=== PATIENT | male | born 1950 | race Hispanic/Latino ===

== ENCOUNTER 2018-10-24 10:18 | Outpatient (CLI) | payer MEDICARE ==
--- NOTE | 2018-10-24 11:18 | RAD ---
CERVICAL SPINE 3 VIEWS: Date: 10/24/18 HISTORY: Injury from a fall. FINDINGS: Disc osteophytosis changes are noted of the cervical spine. No prevertebral soft tissue swelling. The odontoid and portions of C1 are obscured on the AP open-mouth view. Extensive uncovertebral and face t arthrosis changes are noted. IMPRESSION: Cervical spondylosis. No fracture or dislocation involving the visualized cervical spine. POS: [facility]
--- NOTE | 2018-10-24 11:21 | RAD ---
THORACIC SPINE 3 VIEWS: Date: 10/24/18 HISTORY: Injury from a fall. FINDINGS: Extensive multilevel disc osteophytosis, evidence for thoracic spondylosis. No evidence for acute fra cture or dislocation or significant malalignment. IMPRESSION: Thoracic spine spondylosis without evidence for acute fracture. Given history of injury from trauma, if the patient has significant or worsening pain in the cervical or thoracic spine level, considerati on for follow-up CT scan or MRI study might be of benefit. POS: [facility]
--- NOTE | 2018-10-24 11:23 | RAD ---
LUMBAR SPINE 2 VIEWS: HISTORY: Back pain following injury from a fall. FINDINGS: AP and lateral views of the lumbar spine are performed. There is some minimal less than 50% vertical height loss of the L1 vertebral body with some irregularity of the superior end plate raising concer n for the possibility of a compression fracture. There does not appear to be severe associated retro pulsion. Multilevel disk-osteophytosis and disk space narrowing. Mild scoliotic changes convex to t he left side at the level of the lower spine. IMPRESSION: Less than 50% vertical height loss compression fracture of L1. Severe spondylosis. Mild scoliosis. CODE T POS: [facility]
== END 2018-10-24 10:19 | disposition home or self-care (01) ==
LOC: BICRAD 10:18
PROVIDERS: ATTEND Physician Assistant
DX: M54.41 Lumbago with sciatica, right side (principal); W19.XXXA Unspecified fall, initial encounter; M47.816 Spondylosis without myelopathy or radiculopathy, lumbar region; M41.9 Scoliosis, unspecified; S32.019A Unspecified fracture of first lumbar vertebra, initial encounter for closed fracture; M47.814 Spondylosis without myelopathy or radiculopathy, thoracic region; M47.812 Spondylosis without myelopathy or radiculopathy, cervical region
CPT/HCPCS: 72040; 72072; 72100

== ENCOUNTER 2021-03-20 07:45 | Inpatient (IN) | payer MEDICARE ==
[2021-03-21 12:45] VITALS: BMI 29.8
[2021-03-23] MEDS ORDERED: ceFAZolin 2 GM/DEX 5% 100 ML BAG ONE (06:11)
[2021-03-23] MEDS ORDERED: Fentanyl 100 MCG/2 ML VIAL ONE ×2 (06:25→10:03)
[2021-03-23] MEDS ORDERED: Lidocaine 1% (PF) 30 ML VIAL ONE (06:30)
[2021-03-23] MEDS ORDERED: Bupivacaine 0.25% 10 ML VIAL ONE ×3 (06:30→06:52)
[2021-03-23] MEDS ORDERED: EPINEPHrine 1 MG/ML AMP ONE (06:30)
[2021-03-23] MEDS ORDERED: Lidocaine 0.5%/Epinephrine 1:200,000 50 ml Vial ONE (06:36)
[2021-03-23] MEDS ORDERED: Lidocaine 1% w/Epinephrine 1:100K 20 ML VIAL ONE (06:52)
[2021-03-23] MEDS ORDERED: Ondansetron PF 4 MG/2 ML Vial ONE (07:14)
[2021-03-23] MEDS ORDERED: Rocuronium Bromide 10 MG/ML (10ML VIAL) ONE (07:14)
[2021-03-23] MEDS ORDERED: Glycopyrrolate 0.2 MG/ML 5 ML SYRINGE ONE (07:14)
[2021-03-23] MEDS ORDERED: Lidocaine 1% PF 5 ML VIAL ONE (07:14)
[2021-03-23] MEDS ORDERED: Phenylephrine 10 MG/ML VIAL ONE (07:14)
[2021-03-23] MEDS ORDERED: PROPOFOL 200 MG/20 ML VIAL ONE (07:14)
[2021-03-23] MEDS ORDERED: Dexamethasone 20 MG/5 ML VIAL ONE (07:14)
[2021-03-23] MEDS ORDERED: Promethazine HCl 25 MG/ML VIAL IVPB PRN (07:44)
[2021-03-23] MEDS ORDERED: Promethazine HCl 25 MG/ML VIAL IM PRN (07:44)
[2021-03-23] MEDS ORDERED: Ondansetron HCl/PF 4 MG/2 ML Vial IVP PRN (07:44)
[2021-03-23] MEDS ORDERED: Acetaminophen 325 MG TAB PO PRN (08:59)
[2021-03-23] MEDS ORDERED: Cepastat Lozenges 1 LOZ PO PRN (08:59)
[2021-03-23] MEDS ORDERED: Docusate 100 MG CAP PO PRN (08:59)
[2021-03-23] MEDS ORDERED: hydrALAZINE 20 MG/ML VIAL SLOW IVP PRN (08:59)
[2021-03-23] MEDS ORDERED: Morphine 4 MG/ML VIAL SLOW IVP PRN (08:59)
[2021-03-23] MEDS ORDERED: HYDROcodone/Acetaminophen 7.5/325 mg Tablet PO PRN (08:59)
[2021-03-23] MEDS ORDERED: Promethazine HCl 12.5 MG in Sodium Chloride 0.9% 50 ML IVPB PRN (09:03)
[2021-03-23] MEDS ORDERED: Acetaminophen/Codeine 30-300mg Tablet PO PRN (09:04)
[2021-03-23] MEDS: Sodium Chloride 0.9% 1,000 ML IV SCH ×2 (13:21→23:36)
[2021-03-23] MEDS: ceFAZolin Sodium/D5W 2 GM in Premix Bag 1 BAG IVPB SCH ×2 (15:49→22:51)
[2021-03-23] MEDS: traMADol HCl 50 MG TAB PO PRN (16:11)
[2021-03-24] MEDS: ceFAZolin Sodium/D5W 2 GM in Premix Bag 1 BAG IVPB SCH (06:30)
[2021-03-24] MEDS: Losartan 25 MG TAB PO SCH ×2 (08:06→08:15)
[2021-03-24] MEDS: Amlodipine 10 MG TAB PO SCH ×2 (08:06→08:15)
[2021-03-24] MEDS: traMADol HCl 50 MG TAB PO PRN ×2 (08:06→18:34)
[2021-03-24] MEDS: Ondansetron PF 4 MG/2 ML Vial IVP PRN ×2 (08:06→18:34)
[2021-03-24] MEDS: Sodium Chloride 0.9% 1,000 ML IV SCH (09:43)
[2021-03-24 16:07] VITALS: BP 152/75; TEMP 98.3
== END 2021-03-24 20:10 | disposition home or self-care (01) | DRG 33 ==
LOC: SURG A 03-23 05:59 → EDSTATUS 03-23 07:45 → SURG A 03-23 12:38
PROVIDERS: ADMIT Surgery; ATTEND Surgery
PROC: 00163J6 Bypass Cerebral Ventricle to Peritoneal Cavity with Synthetic Substitute, Percutaneous Approach (ICD-10-PCS; principal; 2021-03-23)
PROC: 0WJG4ZZ Inspection of Peritoneal Cavity, Percutaneous Endoscopic Approach (ICD-10-PCS; 2021-03-23)
DX: G91.2 (Idiopathic) normal pressure hydrocephalus (principal); Z20.822 Contact with and (suspected) exposure to COVID-19; I10 Essential (primary) hypertension; Z79.899 Other long term (current) drug therapy; Z01.818 Encounter for other preprocedural examination
CPT/HCPCS: 70450; 80048; 85027; 85610; 85730; 93005; C1713; C1750; C1889; J0171; J1100; J2001; J2370; J2405; J2704; J3010; J3370; L8501; S0020; U0003; U0005

== ENCOUNTER 2021-03-20 08:09 | Outpatient (CLI) | payer MEDICARE ==
[2021-03-20 09:21] LABS: Hemoglobin 13.2 g/dL (13.5-17.5); Mean Corpuscular HGB CONC 32.8 g/dL (32.0-36.0); Mean Corpuscular Hemoglobin 27.5 pg (27.0-33.0); Mean Platelet Volume 11.2 fl (7.4-10.4); Platelet Count 278 10x3/uL (150-450); RBC Distribution Width 13.2 % (11.5-14.5); White Blood Cell (WBC) Count 6.1 10x3/uL (3.5-10.5)
[2021-03-20 09:35] LABS: Anion Gap 12 mmol/L (10-20); BUN (Urea Nitrogen) 21 mg/dL (8.4-25.7); Calc. Creatinine Clearance 0 mL/min (70-130); Calcium 9.3 mg/dL (7.8-10.44); Carbon Dioxide 27 mmol/L (23-31); Chloride 107 mmol/L (98-107); Glucose 100 mg/dL (83-110); Potassium 5.1 mmol/L (3.5-5.1); Sodium 141 mmol/L (136-145)
[2021-03-20 09:42] LABS: PTT 26.7 sec (22.0-33.0); Prothrombin Time 10.7 sec (9.5-12.1)
[2021-03-21 14:31] LABS: SARS-CoV-2 PCR by NAA Not Detected (NotDetected)
== END 2021-03-20 08:10 | disposition home or self-care (01) ==
LOC: LABBT 08:09
PROVIDERS: ATTEND Surgery
DX: Z01.818 Encounter for other preprocedural examination (principal); G91.9 Hydrocephalus, unspecified; Z20.822 Contact with and (suspected) exposure to COVID-19
CPT/HCPCS: 80048; 85027; 85610; 85730; 93005; U0003; U0005; 93010

== ENCOUNTER 2021-06-01 09:53 | Outpatient (CLI) | payer MEDICARE | END 2021-06-01 09:54 | disposition home or self-care (01) | LOC: BICCT 09:53 | PROVIDERS: ATTEND Surgery | DX: R51.9 Headache, unspecified (principal); I62.00 Nontraumatic subdural hemorrhage, unspecified; Z98.2 Presence of cerebrospinal fluid drainage device | CPT/HCPCS: 70450; 74018 ==

== ENCOUNTER 2021-06-01 13:30 | Inpatient (IN) | payer MEDICARE ==
[2021-06-02] MEDS ORDERED: Fentanyl 250 MCG/5 ML VIAL ONE (09:40)
[2021-06-02] MEDS ORDERED: Lidocaine 0.5%/Epinephrine 1:200,000 50 ml Vial ONE (09:46)
[2021-06-02] MEDS ORDERED: Thrombin 5000 UNITS/5 ML VIAL ONE (09:46)
[2021-06-02] MEDS ORDERED: SUGAMMADEX SODIUM 200 MG/2 ML VIAL ONE (09:52)
[2021-06-02] MEDS ORDERED: ceFAZolin 2 GM/DEX 5% 100 ML BAG ONE ×2 (09:58)
[2021-06-02] MEDS ORDERED: Ondansetron PF 4 MG/2 ML Vial IVP PRN (10:05)
[2021-06-02] MEDS ORDERED: Promethazine HCl 25 MG/ML VIAL IM PRN ×2 (10:05→10:47)
[2021-06-02] MEDS ORDERED: HYDROcodone/Acetaminophen 7.5/325 mg Tablet PO PRN (10:05)
[2021-06-02] MEDS ORDERED: PROPOFOL 200 MG/20 ML VIAL ONE (10:07)
[2021-06-02] MEDS ORDERED: Dexamethasone 20 MG/5 ML VIAL ONE (10:07)
[2021-06-02] MEDS ORDERED: Rocuronium Bromide 10 MG/ML (10ML VIAL) ONE (10:07)
[2021-06-02] MEDS ORDERED: Lidocaine 1% PF 5 ML VIAL ONE (10:07)
[2021-06-02] MEDS ORDERED: Ondansetron PF 4 MG/2 ML Vial ONE (10:07)
[2021-06-02] MEDS ORDERED: PHENYLEPHRINE-NS 100 MCG/ML 10 ML SYRINGE ONE (10:07)
[2021-06-02] MEDS ORDERED: ePHEDrine 50 MG/ML VIAL ONE (10:07)
[2021-06-02] MEDS ORDERED: Morphine 4 MG/ML VIAL SLOW IVP PRN (10:26)
[2021-06-02] MEDS ORDERED: Ondansetron HCl/PF 4 MG/2 ML Vial IVP PRN (10:47)
[2021-06-02] MEDS ORDERED: HYDROmorphone 2 MG/ML VIAL SLOW IVP PRN (10:47)
[2021-06-02] MEDS ORDERED: Promethazine HCl 25 MG/ML VIAL IVPB PRN (10:47)
[2021-06-02] MEDS: Sodium Chloride 0.9% 1,000 ML IV SCH (13:07)
[2021-06-02] MEDS ORDERED: FLU VACC QS2021-22(65YR UP)/PF 240 MCG/0.7 ML SYRINGE IM ONE (13:15)
[2021-06-02] MEDS: CEFAZOLIN 2 GM, Admixture Fee 1 EACH in Sodium Chloride 0.9% 100 ML IVPB SCH (17:42)
[2021-06-03] MEDS: Sodium Chloride 0.9% 1,000 ML IV SCH ×3 (01:43→18:24)
[2021-06-03] MEDS: CEFAZOLIN 2 GM, Admixture Fee 1 EACH in Sodium Chloride 0.9% 100 ML IVPB SCH ×3 (01:43→18:23)
[2021-06-03] MEDS: Amlodipine 10 MG TAB PO SCH (09:15)
[2021-06-03] MEDS: Losartan 25 MG TAB PO SCH (09:16)
[2021-06-04 00:30] LABS: #Basophils 0.1 thou/uL (0.0-0.2); #Eosinphils 0.2 thou/uL (0.0-0.7); #Lymphocytes 1.9 thou/uL (1.20-3.40); #Monocytes 0.8 thou/uL (0.11-0.59); #Neutrophils 5.7 thou/uL (1.40-6.50); %Basophils 0.7 % (0.0-1.0); %Eosinophils 2.4 % (0.0-10.0); %Lymphocytes 21.6 % (21.0-51.0); %Monocytes 8.7 % (0.0-10.0); %Neutrophils 66.6 % (42.0-75.0); Hemoglobin 14.5 g/dL (14.0-18.0); Mean Corpuscular HGB CONC 33.9 g/dL (32.0-36.0); Mean Corpuscular Hemoglobin 29.7 pg (27.0-31.0); Mean Corpuscular Volume 87.5 fL (78.0-98.0); Mean Platelet Volume 8.4 fL (7.4-10.4); Platelet Count 261 thou/uL (130-400); RBC Distribution Width 12.4 % (11.5-14.5); White Blood Cell (WBC) Count 8.6 thou/uL (4.8-10.8)
[2021-06-04 00:52] LABS: Anion Gap 9 mmol/L (10-20); BUN (Urea Nitrogen) 15 mg/dL (8.4-25.7); Calc. Creatinine Clearance 101 mL/min (70-130); Calcium 8.3 mg/dL (7.8-10.44); Carbon Dioxide 28 mmol/L (23-31); Chloride 105 mmol/L (98-107); Glucose 102 mg/dL (83-110); Potassium 3.8 mmol/L (3.5-5.1); Sodium 138 mmol/L (136-145)
[2021-06-04] MEDS: CEFAZOLIN 2 GM, Admixture Fee 1 EACH in Sodium Chloride 0.9% 100 ML IVPB SCH (02:36)
[2021-06-04 05:38] VITALS: BMI 29.5
[2021-06-04] MEDS ORDERED: Metoprolol Tartrate 5 MG/5 ML VIAL IVP SCH (08:30)
[2021-06-04] MEDS: Sodium Chloride 0.9% 1,000 ML IV SCH ×2 (10:10→16:44)
[2021-06-04] MEDS: Losartan 25 MG TAB PO SCH (10:11)
[2021-06-04] MEDS: Amlodipine 10 MG TAB PO SCH (10:12)
[2021-06-04] MEDS: Metoprolol Tartrate 25 MG TAB PO SCH (20:57)
[2021-06-04] MEDS: Amiodarone 200 MG TAB PO SCH (20:57)
[2021-06-05] MEDS: Metoprolol Tartrate 25 MG TAB PO SCH (08:47)
[2021-06-05] MEDS: Losartan 25 MG TAB PO SCH (08:47)
[2021-06-05] MEDS: Amlodipine 10 MG TAB PO SCH (08:47)
[2021-06-05] MEDS: Amiodarone 200 MG TAB PO SCH ×3 (08:50→21:11)
[2021-06-05] MEDS ORDERED: Potassium Chloride 20 MEQ TAB PO SCH (16:00)
[2021-06-06 08:13] VITALS: BP 145/70; TEMP 98.3
[2021-06-06] MEDS: Losartan 25 MG TAB PO SCH (08:37)
[2021-06-06] MEDS: Amlodipine 10 MG TAB PO SCH (08:38)
[2021-06-06] MEDS ORDERED: Amiodarone 200 MG TAB PO SCH (09:00)
== END 2021-06-06 10:55 | disposition home or self-care (01) | DRG 26 ==
LOC: SURG A 06-02 07:35 → CCU 06-02 12:40 → 2NO 06-04 11:09
PROVIDERS: ADMIT Surgery; ATTEND Surgery
PROC: 00C40ZZ Extirpation of Matter from Intracranial Subdural Space, Open Approach (ICD-10-PCS; principal; 2021-06-02)
DX: I62.02 Nontraumatic subacute subdural hemorrhage (principal); G91.2 (Idiopathic) normal pressure hydrocephalus; G96.08 Other cranial cerebrospinal fluid leak; I62.03 Nontraumatic chronic subdural hemorrhage; Z20.822 Contact with and (suspected) exposure to COVID-19; I10 Essential (primary) hypertension; R00.1 Bradycardia, unspecified; I48.0 Paroxysmal atrial fibrillation; Z28.21 Immunization not carried out because of patient refusal; Z98.2 Presence of cerebrospinal fluid drainage device
CPT/HCPCS: 36415; 70450; 74018; 80048; 83735; 83930; 84443; 85025; 85027; 85610; 85730; 93005; 93010; 93306; 93970; C1713; J0690; J1100; J2001; J2405; J2704; J3010; J3370; J3490; J7050; U0003; U0005

== ENCOUNTER 2021-06-01 13:56 | Outpatient (CLI) | payer MEDICARE ==
[2021-06-01 15:07] LABS: Mean Corpuscular HGB CONC 32.7 g/dL (32.0-36.0); Mean Corpuscular Hemoglobin 27.7 pg (27.0-33.0); Mean Corpuscular Volume 84.6 fl (81.2-95.1); Mean Platelet Volume 11.2 fl (7.4-10.4); Platelet Count 297 10x3/uL (150-450); RBC Distribution Width 13.2 % (11.5-14.5); Red Blood Cell (RBC) Count 4.69 10x6/uL (4.32-5.72)
[2021-06-01 15:21] LABS: Anion Gap 14 mmol/L (10-20); BUN (Urea Nitrogen) 18 mg/dL (8.4-25.7); Calc. Creatinine Clearance 0 mL/min (70-130); Calcium 9.6 mg/dL (7.8-10.44); Carbon Dioxide 28 mmol/L (23-31); Chloride 104 mmol/L (98-107); Glucose 88 mg/dL (83-110); PTT 25.8 sec (22.0-33.0); Potassium 4.2 mmol/L (3.5-5.1); Prothrombin Time 10.9 sec (9.5-12.1); Sodium 142 mmol/L (136-145)
[2021-06-02 00:11] LABS: SARS-CoV-2 PCR by NAA Not Detected (NotDetected)
== END 2021-06-01 13:57 | disposition home or self-care (01) ==
LOC: LABBT 13:56
PROVIDERS: ATTEND Surgery
DX: Z01.818 Encounter for other preprocedural examination (principal); G96.08 Other cranial cerebrospinal fluid leak; Z20.822 Contact with and (suspected) exposure to COVID-19
CPT/HCPCS: 80048; 85027; 85610; 85730; 93005; U0003; U0005; 70450; 74018; 93010

== ENCOUNTER 2021-08-23 12:25 | Outpatient (CLI) | payer MEDICARE | END 2021-08-23 12:26 | disposition home or self-care (01) | LOC: CT 12:25 | PROVIDERS: ATTEND Surgery | DX: G91.9 Hydrocephalus, unspecified (principal); G93.89 Other specified disorders of brain; I62.00 Nontraumatic subdural hemorrhage, unspecified | CPT/HCPCS: 70450 ==

== ENCOUNTER 2021-12-15 12:11 | Outpatient (CLI) | payer OTHER | END 2021-12-15 12:12 | disposition home or self-care (01) | LOC: CT 12:11 | PROVIDERS: ATTEND Surgery | DX: I62.00 Nontraumatic subdural hemorrhage, unspecified (principal) | CPT/HCPCS: 70450 ==

== ENCOUNTER 2022-01-22 12:34 | Outpatient (CLI) | payer OTHER | END 2022-01-22 12:35 | disposition home or self-care (01) | LOC: CT 12:34 | PROVIDERS: ATTEND Surgery | DX: G91.2 (Idiopathic) normal pressure hydrocephalus (principal); Z98.2 Presence of cerebrospinal fluid drainage device | CPT/HCPCS: 70450 ==

== ENCOUNTER 2022-03-26 12:35 | Outpatient (CLI) | payer OTHER | END 2022-03-26 12:36 | disposition home or self-care (01) | LOC: CT 12:35 | PROVIDERS: ATTEND Surgery | DX: G91.9 Hydrocephalus, unspecified (principal) | CPT/HCPCS: 70450 ==